=== PATIENT | female | born 1990 | race Caucasian/White ===

== ENCOUNTER → 2025-06-19 11:15 | Outpatient (BNVA) | payer BC, SELFPAY | PROVIDERS: PCP Family Medicine; Visit Provider Family Medicine | DX: E72.12 Methylenetetrahydrofolate reductase deficiency (principal); E72.11 Homocystinuria; E53.8 Deficiency of other specified B group vitamins; D50.9 Iron deficiency anemia, unspecified; E55.9 Vitamin D deficiency, unspecified | CPT/HCPCS: 80053; 80061; 82306; 82607; 82746; 83090; 84443; 85025 ==